=== PATIENT | female | born 2000 | race American Indian/Alaskan Native ===

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

== ENCOUNTER 2020-01-29 13:22 | Emergency (ER) | payer SELFPAY ==
--- NOTE | 2020-01-29 14:48 | Event Note ---
ED Screening Note Date of service: 01/29/20 Time: 14:47 ED Screening Note: 19-year-old -[place] female presents to the emergency room stating she has had been having vaginal bleeding since September. She is followed by [facility]. This initial assessment/diagnostic orders/clinical plan/treatment(s) is/are subject to change based on patients health status, clinical progression and re- assessment by fellow clinical providers in the ED. Further treatment and workup at subsequent clinical providers discretion. Patient/guardian urged not to elope from the ED as their condition may be serious if not clinically assessed and managed. Initial orders include:
[2020-01-29 15:41] LABS: Alanine Aminotransferase 9 units/L (7-56); Albumin 4.5 g/dL (3.9-5); Blood Urea Nitrogen 7 mg/dL (7-17); Calcium 9.7 mg/dL (8.4-10.2); Hemolysis Index 8
[2020-01-29 15:47] LABS: BUN/Creatinine Ratio 10
[2020-01-29 16:25] LABS: Basophils % (Auto) 0.6 % (0.0-1.8); Eosinophils # (Auto) 0.1 K/mm3 (0.0-0.4); Eosinophils % (Auto) 3.2 % (0.0-4.3); Hematocrit 38.3 % (30.3-42.9); Hemoglobin 12.8 gm/dl (10.1-14.3); Lymphocytes # (Auto) 1.6 K/mm3 (1.2-5.4); Lymphocytes % (Auto) 41.8 % (13.4-35.0); Mean Corpuscular HGB Conc 33 % (30-34); Mean Corpuscular Volume 87 fl (79-97); Monocytes # (Auto) 0.3 K/mm3 (0.0-0.8); Monocytes % (Auto) 8.6 % (0.0-7.3); Platelet Count 344 K/mm3 (140-440); Red Cell Distribution Width 15.1 % (13.2-15.2)
--- NOTE | 2020-01-29 17:56 | Emergency Department Report ---
ED General Adult HPI - General Chief complaint: Weakness Stated complaint: WEAK/SORE THROAT/NOSE STUFFY Time Seen by Provider: 01/29/20 14:43 Source: patient Mode of arrival: Ambulatory Limitations: No Limitations - History of Present Illness Initial comments: 19-year-old female complaining of light vaginal bleeding since receiving her control in September. today she comes complains of increased urination generalized weakness and sore throat she is also complaining of lower abdominal discomfort she denies fever no chest pain no shortness of breath, no vomiting no diarrhea she denies any past medical history. She is a patient of [facility] -: week(s) Improves with: none Associated Symptoms: weakness. denies: chest pain, cough, diaphoresis, fever/chills, loss of appetite, malaise, nausea/vomiting Treatments Prior to Arrival: none - Related Data Previous Rx's Medication Instructions Recorded Last Taken Type Azithromycin [Zithromax Z-DOM] 250 mg PO DAILY #6 tablet 03/09/14 Unknown Rx Fluticasone [Flonase] 1 spray NS QDAY #1 bottle 03/09/14 Unknown Rx Promethazine /Codeine 5 ml PO Q6H PRN #60 ml 03/09/14 Unknown Rx [Phenergan/Codeine 6.25-10 mg/5 ml] Acetamin/Codeine 120-12Mg/5 ml 5 ml PO Q8H PRN #40 ml 02/22/15 Unknown Rx [Tylenol/Codeine 120-12 mg/5 ml] guaiFENesin [Child Mucinex Chest 100 mg PO Q4HR #120 ml 02/22/15 Unknown Rx Congestion] Vit-Fe Fumar-FA [ 1 tab PO QDAY #30 tablet 05/03/17 Unknown Rx Vitamin] Ibuprofen [Motrin 800 MG tab] 800 mg PO Q8HR PRN #30 tablet 10/31/18 Unknown Rx Ibuprofen [Motrin] 800 mg PO Q8HR PRN #21 tablet 01/29/20 Unknown Rx Allergies Allergy/AdvReac Type Severity Reaction Status Date / Time No Known Allergies Allergy Verified 10/31/18 15:49 ED Review of Systems ROS: Stated complaint: WEAK/SORE THROAT/NOSE STUFFY Other details as noted in HPI Comment: All other systems reviewed and negative Constitutional: weakness. denies: chills, fever Eyes: denies: eye pain, vision change ENT: denies: ear pain, throat pain Respiratory: denies: cough, shortness of breath, SOB with exertion, wheezing Cardiovascular: denies: chest pain, palpitations, dyspnea on exertion, syncope, paroxysmal nocturnal dyspnea Gastrointestinal: other (abdominal discomfort). denies: nausea, vomiting, diarrhea, constipation, hematemesis Genitourinary: frequency. denies: hematuria, discharge Musculoskeletal: denies: back pain, arthralgia Neurological: weakness. denies: headache Psychiatric: auditory hallucinations. denies: anxiety, depression ED Past Medical Hx - Past Medical History Previous Medical History?: Yes Hx Hypertension: No Hx Diabetes: No Hx Deep Vein Thrombosis: No Hx Renal Disease: No Hx Sickle Cell Disease: No Hx Seizures: No Hx Asthma: No Hx HIV: No Additional medical history: Bronchitis, Vaginal delivery - Surgical History Past Surgical History?: No Additional Surgical History: none - Social History Smoking Status: Current Every Day Smoker Substance Use Type: Alcohol, Marijuana - Medications Home Medications: Home Medications Medication Instructions Recorded Confirmed Last Taken Type Azithromycin [Zithromax Z-DOM] 250 mg PO DAILY #6 tablet 03/09/14 Unknown Rx Fluticasone [Flonase] 1 spray NS QDAY #1 bottle 03/09/14 Unknown Rx Promethazine /Codeine 5 ml PO Q6H PRN #60 ml 03/09/14 Unknown Rx [Phenergan/Codeine 6.25-10 mg/5 ml] Acetamin/Codeine 120-12Mg/5 ml 5 ml PO Q8H PRN #40 ml 02/22/15 Unknown Rx [Tylenol/Codeine 120-12 mg/5 ml] guaiFENesin [Child Mucinex Chest 100 mg PO Q4HR #120 ml 02/22/15 Unknown Rx Congestion] Vit-Fe Fumar-FA [ 1 tab PO QDAY #30 tablet 05/03/17 Unknown Rx Vitamin] Ibuprofen [Motrin 800 MG tab] 800 mg PO Q8HR PRN #30 tablet 10/31/18 Unknown Rx Ibuprofen [Motrin] 800 mg PO Q8HR PRN #21 tablet 01/29/20 Unknown Rx ED Physical Exam - General Limitations: No Limitations General appearance: alert, in no apparent distress - Head Head exam: Present: atraumatic - Eye Eye exam: Present: normal appearance. Absent: scleral icterus, conjunctival injection - ENT ENT exam: Present: normal exam, normal orophraynx, mucous membranes dry, TM's normal bilaterally - Neck Neck exam: Present: normal inspection, full ROM. Absent: tenderness, lymphadenopathy - Respiratory Respiratory exam: Present: normal lung sounds bilaterally. Absent: respiratory distress, wheezes, rales, rhonchi, chest wall tenderness - Cardiovascular Cardiovascular Exam: Present: regular rate, normal rhythm, normal heart sounds - GI/Abdominal GI/Abdominal exam: Present: soft, normal bowel sounds. Absent: distended, tenderness, guarding, rebound - Rectal Rectal exam: Absent: deferred - Extremities Exam Extremities exam: Present: normal inspection, normal capillary refill - Back Exam Back exam: Present: normal inspection. 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 She denies any trauma or injuries explained. I explained to patient that she has no urine infection her hemoglobin and hematocrit are within normal limits and. And this fatigue and weakness may very well be related to stress and fatigue. Patient agrees the plan is for patient to be discharged home she is to follow-up with her primary care doctor and with [facility] I will prescribe Motrin 800 for her low back pain I encourage rest and hydration ED Medical Decision Making - Lab Data Result diagrams: 01/29/20 16:02 01/29/20 15:10 - Medical Decision Making This is a 19-year-old female complaining of fatigue weakness low back pain vaginal bleeding since September after starting a new control. Physical exam is within normal limits labs are within normal limits she has no sign of infection she is not anemic patient. Critical care attestation.: If time is entered above; I have spent that time in minutes in the direct care of this critically ill patient, excluding procedure time. ED Disposition Clinical Impression: Abnormal vaginal bleeding, Muscle strain Fatigue Qualifiers: Fatigue type: unspecified Qualified Code(s): R53.83 - Other fatigue Disposition: - TO HOME OR SELFCARE Is pt being admited?: No Does the pt Need Aspirin: No Condition: Stable Instructions: Abnormal Uterine Bleeding, Fatigue, Muscle Strain, [id number] Additional Instructions: Please follow-up with [facility] regarding abnormal vaginal bleeding which may be related to your control. Your blood work shows no signs of anemia. Your urinalysis does not show sign of infection. the exam of your throat shows no abnormal findings. Please continue to rest hydrate yourself with plenty of water at least 6 to 8 glasses a day you can take [id number] Tylenol or Advil for pain and return for any worsening vaginal bleeding pain fe philipp Prescriptions: Ibuprofen [Motrin] 800 mg PO Q8HR PRN #21 tablet PRN Reason: Pain , Severe (7-10) Referrals: PRIMARY CARE, [Primary Care Provider] - 3-5 Days [facility] [Provider Group] - 3-5 Days Forms: Work/School Release Form(ED) Time of Disposition: 18:41
[2020-01-29 18:09] VITALS: BP 121/57
[2020-01-29 18:33] LABS: Bilirubin,Urine NEG (Negative); Blood,Urine LG (Negative); Color,Urine Yellow (Yellow); Mucus,Urine 3+ /HPF; Protein,Urine <15 mg/dL mg/dL (Negative)
[2020-01-29] MEDS ORDERED: IBUPROFEN 800 MG TAB PO ONE (18:52)
== END 2020-01-29 19:04 | disposition home or self-care (01) ==
LOC: ED 13:22
DX: T14.8XXA Other injury of unspecified body region, initial encounter (principal); N93.9 Abnormal uterine and vaginal bleeding, unspecified; R53.83 Other fatigue; F17.200 Nicotine dependence, unspecified, uncomplicated; F12.90 Cannabis use, unspecified, uncomplicated; Z79.899 Other long term (current) drug therapy; X58.XXXA Exposure to other specified factors, initial encounter; Y93.89 Activity, other specified; Y92.89 Other specified places as the place of occurrence of the external cause; Y99.8 Other external cause status
CPT/HCPCS: 36415; 80053; 81001; 84702; 85025; 99283